=== PATIENT | female | born 1970 | race Caucasian/White ===

== ENCOUNTER → 2016-05-14 | Outpatient (CLI) | payer OTHER ==
--- NOTE | 2016-05-14 10:44 | MA ---
Screening Digital Mammogram With iCAD Analysis Clinical Indications: Routine screening. Technique: Standard cephalocaudal projections are obtained. Digital breast tomosynthesis was performe d in the MLO projection with reconstruction at 1.0 mm slice thickness and composite MLO views reconst ructed. This examination is processed by the iCAD computer aided detection system. Comparison: May 2015, May 2014, April 2013, August 2012, March 2012, May 2010. Breast density: Type B; Scattered fibroglandular densities. Findings: CAD was reviewed. No masses, suspicious calcifications or secondary signs of malignancy are seen. There has been no significant change in the appearance of either breast. Impression: Negative mammogram. BI-RADS 1. Recommendation: Routine mammographic screening in one year as long as physical [facility]. Negative mammography should not preclude additional workup of a clinically suspicious finding. The patient's information is entered into a reminder system with a target due date for her next mammo gram.
== END ==
LOC: FIMAGING 08:29
DX: Z12.31 Encounter for screening mammogram for malignant neoplasm of breast (principal)

== ENCOUNTER 2018-01-07 11:50 | Emergency (ER) | payer OTHER ==
[2018-01-07] MEDS ORDERED: RANITIDINE 50 MG/2 ML VIAL IV ONE (11:58)
[2018-01-07] MEDS ORDERED: methylPREDNISolone SOD SUCC 125 MG/2 ML VIAL IVP ONE (11:58)
--- NOTE | 2018-01-07 12:09 | EDPHY ---
H & P Time Seen by Provider: 01/07/18 12:02 HPI/ROS: CHIEF COMPLAINT: Itching and sensation of throat swelling HISTORY OF PRESENT ILLNESS: Patient is had recurrent anaphylaxis in the past. She thinks it is most likely due to exercise after having been evaluated at [facility]. She was taking a tennis less than and 11:38 a.m. Noticed her typical symptoms started with eyes itching and then her nose in her throat started itching and she felt her throat was tight in her hands were burning. Difficulty breathing. Symptoms mild to moderate on arrival. REVIEW OF SYSTEMS: Eye: HPI ENT: HPI Cardiac: no chest pain or syncope Pulmonary: no cough or SOB Abdomen: no vomiting, diarrhea, abdominal pain Musculoskeletal: no back pain Skin: no rash Neuro: no headache Constitutional: no fever : no urinary symptoms A comprehensive 10 point review of systems is otherwise negative aside from elements mentioned in the history of present illness. PAST MEDICAL HISTORY: History of asthma and anxiety. Exercise-induced anaphylaxis per the patient's report , diagnosed by [facility] Social history: Primary care is Dr. Acevedo, has also been to [facility] General Appearance: Alert and conversant, cooperative. Eyes: No scleral icterus. ENT, Mouth: Very slight uvular swelling otherwise normal mouth without other angioedema. No stridor or drooling. No trismus. Respiratory: Normal respiratory effort, breath sounds equal, lungs are clear to auscultation. No wheezing. Cardiovascular: Regular rate and rhythm. Gastrointestinal: Abdomen is soft and non tender. Neurological: Alert, face symmetric, normal motor and sensory in extremities. Skin: Warm and dry, no rashes. Musculoskeletal: No peripheral edema. Psychiatric: Not agitated. Emergency Department course/MDM: Patient received steroids and antihistamines, plan for observation. 1300: Feels better, plan to discharge if still feels better after about another 30-40 minutes. Symptoms resolving, did not require epinephrine. Has EpiPen at home, steroid taper discussed and consented. Today's trigger is unknown. Smoking Status: Never smoked Constitutional: Initial Vital Signs Temperature (C) 36.5 C 01/07/18 11:55 Heart Rate 78 01/07/18 11:55 Respiratory Rate 16 01/07/18 11:55 Blood Pressure 165/95 H 01/07/18 11:55 O2 Sat (%) 99 01/07/18 11:55 O2 Delivery Mode Room Air Allergies/Adverse Reactions: bee pollen Allergy (Severe, Verified 01/07/18 11:55) celery Allergy (Severe, Verified 01/07/18 11:55) laurel Allergy (Severe, Verified 01/07/18 11:55) tomato Allergy (Severe, Verified 01/07/18 11:55) wheat Allergy (Severe, Verified 01/07/18 11:55) Penicillins Allergy (Verified 01/07/18 11:55) Home Medications: Medication Instructions Recorded EPINEPHRINE [EPIPEN] 0.3 mg IM ONCE #2 syr 04/19/15 Flonase Allergy Relief 04/19/15 Pantonase 04/19/15 diphenhydrAMINE [Benadryl] 25 mg PO Q6 #30 tab 04/19/15 Famotidine [Pepcid] 20 mg PO BID #6 tab 01/07/18 Trintellix 01/07/18 predniSONE 10 mg PO AD #15 tab 01/07/18 Medical Decision Making - Data Points Medications Given: Discontinued Medications Diphenhydramine HCl (Benadryl Injection) 50 mg IVP EDNOW ONE Stop: 01/07/18 11:59 Last Admin: 01/07/18 11:59 Dose: 50 mg Methylprednisolone Sodium Succinate (Solu-Medrol) 125 mg IVP EDNOW ONE Stop: 01/07/18 11:59 Last Admin: 01/07/18 12:00 Dose: 125 mg Ranitidine HCl (Zantac) 50 mg IV EDNOW ONE Stop: 01/07/18 11:59 Last Admin: 01/07/18 12:00 Dose: 50 mg Departure - Departure Disposition: Home, Routine, Self-Care Clinical Impression: Allergic reaction Condition: Good Instructions: General Allergic Reaction (ED) Referrals: Ar Acevedo [Other] - As per Instructions Prescriptions: Famotidine [Pepcid] 20 mg PO BID #6 tab predniSONE 10 mg PO AD #15 tab
[2018-01-07 14:01] VITALS: BP 131/77
[2018-01-07] MEDS ORDERED: methylPREDNISolone SOD SUCC 125 MG/2 ML VIAL ONE (14:22)
[2018-01-07] MEDS ORDERED: RANITIDINE 50 MG/2 ML VIAL ONE (14:22)
== END 2018-01-07 14:00 | disposition home or self-care (01) ==
DX: T78.2XXA Anaphylactic shock, unspecified, initial encounter (principal)
CPT/HCPCS: 96374; J1200; J2780; J2930

== ENCOUNTER → 2018-03-10 | Outpatient (CLI) | payer OTHER | LOC: FIMAGING 15:15 | PROVIDERS: ATTEND Internal Medicine | DX: Z12.31 Encounter for screening mammogram for malignant neoplasm of breast (principal) ==